=== PATIENT | female | born 1995 | race Caucasian/White ===

== ENCOUNTER → 2023-12-03 | Outpatient (CLI) | payer MEDICAID | END | disposition home or self-care (01) | LOC: RAD 10:40 | PROVIDERS: ATTEND Physician Assistant | DX: R10.11 Right upper quadrant pain (principal); K76.89 Other specified diseases of liver | CPT/HCPCS: 76700 ==

== ENCOUNTER 2023-12-23 15:27 | Outpatient (CLI) | payer MEDICAID | END 2023-12-23 23:59 | disposition home or self-care (01) | LOC: RAD 15:27 | PROVIDERS: ATTEND Internal Medicine Interventional Cardiology | DX: Z13.6 Encounter for screening for cardiovascular disorders (principal); E78.5 Hyperlipidemia, unspecified; F17.211 Nicotine dependence, cigarettes, in remission | CPT/HCPCS: 75571 ==